=== PATIENT | female | born 1985 | race Caucasian/White ===

== ENCOUNTER 2016-10-09 22:22 | Emergency (ER) | payer SELFPAY ==
[~2016-10-09] VITALS: Ht 149.9 cm; Wt 77.1 kg
[2016-10-09] MEDS ORDERED: [UNRECOGNIZED DRUG - REMARK] (23:13)
[2016-10-09] MEDS ORDERED: PRED-170 PO (23:13)
[2016-10-10 03:26] LABS: *BILIRUBIN,URIN NEGATIVE (NEGATIVE); *BLOOD, URINE NEGATIVE (NEGATIVE); *CLARITY,URINE SLIGHTLY CLOUDY (CLEAR); *COLOR,URINE STRAW (YELLOW); *KETONES,URINE NEGATIVE (NEGATIVE); *PROTEIN,URINE NEGATIVE (NEGATIVE); *UROBILINOGEN,URINE 0.2 E.U./dl (NORMAL); LEUKOCYTE ESTERASE ,URINE NEGATIVE (NEGATIVE); NITRITE, URINE NEGATIVE (NEGATIVE); UGLUCOSE NEGATIVE (NEGATIVE)
[2016-10-10 03:29] LABS: BACTERIA,URINE FEW /HPF (NONE SEEN); RBC,URINE 0-3 /HPF (0-3); SQUAMOUS EPITHELIAL CELL,UR MANY /HPF (NONE SEEN); WBC,URINE 0-3 /HPF (0-3)
[2016-10-10 03:30] LABS: *URINE HCG, QUAL NEGATIVE (NEGATIVE)
--- NOTE | 2016-10-10 07:00 | NUR ---
MSE COMPLETED, PT D/C'D HOME, ACI GIVEN. PT AMBULATED W/O DIFF/TOOK ALL BELONGINGS.
[2016-10-10 07:01] VITALS: BP 105/78
== END 2016-10-10 07:02 | disposition home or self-care (01) ==
LOC: ER 22:32
DX: M13.852 Other specified arthritis, left hip (principal); F90.9 Attention-deficit hyperactivity disorder, unspecified type; Z59.0 Homelessness
CPT/HCPCS: 72170; 72192; 73551; 81001; 84703; 99285; A4663